=== PATIENT | male | born 1990 | race Hispanic/Latino ===

== ENCOUNTER 2018-08-24 03:46 | Emergency (ER) | payer OTHER ==
[2018-08-24 04:06] VITALS: RESP 18; TEMP 98.4
[2018-08-24] MEDS ORDERED: Sodium Chloride 0.9% 1,000 ML IV STA (04:45)
--- NOTE | 2018-08-24 04:50 | ED PDOC ---
HPI: Male Pain Time Seen by Provider: 08/24/18 03:51 Chief Complaint (Nursing): Male Genitourinary Chief Complaint (Provider): Testicular Pain History Per: Patient History/Exam Limitations: no limitations Onset/Duration Of Symptoms: Hrs (one) Current Symptoms Are (Timing): Better (Pt presents to the ED complaining of right testical pain that tracts along the right epididymus into the groin. Pt denies trauma, nausea vomiting and diarhhea) Past Medical History Reviewed: Historical Data, Nursing Documentation, Vital Signs Vital Signs: Last Vital Signs Temp 98.4 F 08/24/18 04:03 Pulse 63 08/24/18 04:03 Resp 18 08/24/18 04:03 BP 141/50 L 08/24/18 04:03 Pulse Ox 100 08/24/18 04:03 - Family History Family History: States: Unknown Family Hx - Home Medications Home Medications: Ambulatory Orders Medication Instructions Recorded Sulfamethoxazole/Trimethoprim 1 tab PO BID #20 tab 08/24/18 [Bactrim DS 800 mg-160 mg] - Allergies Allergies/Adverse Reactions: Allergies Allergy/AdvReac Type Severity Reaction Status Date / Time No Known Allergies Allergy Verified 08/24/18 04:00 Review of Systems ROS Statement: Except As Marked, All Systems Reviewed And Found Negative Genitourinary Male: Positive for: Scrotal Pain Physical Exam - Reviewed Nursing Documentation Reviewed: Yes Vital Signs Reviewed: Yes - Physical Exam Appears: Positive for: Well, Non-toxic, No Acute Distress. Negative for: Uncomfortable Head Exam: Positive for: ATRAUMATIC, NORMAL INSPECTION Skin: Positive for: Normal Color, Warm, Dry. Negative for: Diaphoresis, Pallor, Rash Eye Exam: Positive for: Normal appearance. Negative for: Periorbital swelling, Periorbital tenderness ENT: Positive for: Normal ENT Inspection Neck: Positive for: Normal, Painless ROM, Supple. Negative for: Decreased ROM Cardiovascular/Chest: Positive for: Regular Rate, Rhythm Respiratory: Positive for: Normal Breath Sounds Pulses-Carotid (L): 2+ Pulses-Carotid (R): 2+ Pulses-Femoral (L): 2+ Pulses-Femoral (R): 2+ Pulses-Radial (L): 2+ Pulses-Radial (R): 2+ Gastrointestinal/Abdominal: Positive for: Normal Exam, Bowel Sounds (active in all four quadrants), Soft. Negative for: Tenderness Male Genital Exam: Positive for: normal genitalia, epididymal tenderness, scrotum tenderness (R), testicular tenderness (R). Negative for: scrotum tenderness (L), testicular tenderness (L) Back: Positive for: Normal Inspection. Negative for: L CVA Tenderness, R CVA Tenderness - Laboratory Results Urine dip results: Positive for: Leukocyte Esterase, Blood, Nitrate, Bilirubin. Negative for: Ketones, Glucose, Protein - ECG O2 Sat by Pulse Oximetry: 100 Medical Decision Making Medical Decision Making: I: R/O torsion v epididymitis P: CBC CMP UA Fluids US of testical 05:52 US Testicles Findings: The right testicle is normal in size measuring 5.6 x3.1x2.2 cm. Normal right testicular flow. Unremarkable right epididymis. Normal left testicle measuring 5.3 x 3x1.2 cm. Unremarkable left epididymis. Mild bilateral hydroceles. Impression: Normal testicles without evidence of testicular torsion. Mild bilateral hydroceles. Disposition - Clinical Impression Clinical Impression: Urinary tract infection Doctor Will See Patient In The: Office - Disposition Disposition: Routine/Home Disposition Time: 06:15 Condition: STABLE Prescriptions: Sulfamethoxazole/Trimethoprim [Bactrim DS 800 mg-160 mg] 1 tab PO BID #20 tab Instructions: Urinary Tract Infection, Adult (DC) Forms: [employer] ([place]ic)
[2018-08-24 05:31] LABS: URINE BILIRUBIN NEGATIVE (NEGATIVE); URINE BLOOD LARGE (NEGATIVE); URINE CLARITY CLOUDY (Clear); URINE COLOR YELLOW (YELLOW); URINE GLUCOSE (UA) NEG (NEGATIVE); URINE LEUKOCYTE ESTERASE NEG Leu/uL (Negative); URINE PROTEIN 30 mg/dL (NEGATIVE); URINE UROBILINOGEN 0.2-1.0 mg/dL (0.2-1.0)
[2018-08-24 06:34] VITALS: BP 136/50; PULSE 68; O2SAT 98
--- NOTE | 2018-08-24 13:37 | US ---
Date of service: 08/24/2018 HISTORY: r/o torsion / testicular pain TECHNIQUE: Realtime sonography through the scrotum with color and doppler flow. COMPARISON: None Available. FINDINGS: RIGHT TESTICLE: Measures 2.2 x 3.1 x 5.6 cm. Normal echotexture and flow. RIGHT EPIDIDYMIS: Epididymal head measures 8 x 8 cm. Grossly unremarkable appearance with normal flow. LEFT TESTICLE: Measures 3 x 2.1 x 5.3 cm. Normal echotexture and flow. LEFT EPIDIDYMIS: Epididymal head measures 9 x 8 cm. Grossly unremarkable appearance with normal flow. HYDROCELE: Trace, bilaterally symmetrical, likely physiologic VARICOCELE: None. OTHER FINDINGS: None. IMPRESSION: No significant or acute findings to account for/ related to the clinical presentation. Additional benign and/or incidental findings described above. Concordant findings (preliminary report) provided by [facility].
== END 2018-08-24 06:10 | disposition home or self-care (01) ==
LOC: H.ER 03:46
DX: N43.3 Hydrocele, unspecified (principal); N39.0 Urinary tract infection, site not specified
CPT/HCPCS: 81003; 93975; 96372; 99284; J1885